=== PATIENT | male | born 1940 | race Caucasian/White ===

== ENCOUNTER 2017-01-12 11:59 | Emergency (ER) | payer OTHER ==
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
[2017-01-12 12:52] VITALS: RESP 16
[2017-01-12 13:21] LABS: INR 1.44 (0.83-1.16); PROTIME(PATIENT) 17.5 SEC (12.0-15.0)
[2017-01-12] MEDS ORDERED: LET GEL TOPICAL 1 EA SYR TP ONE ×2 (14:06→15:47)
[2017-01-12 15:41] VITALS: BP 165/90; PULSE 69; TEMP 98.1; O2SAT 96
== END 2017-01-12 15:40 | disposition home or self-care (01) ==
LOC: EDUNIT#
DX: S13.4XXA Sprain of ligaments of cervical spine, initial encounter (principal); S51.812A Laceration without foreign body of left forearm, initial encounter; S81.012A Laceration without foreign body, left knee, initial encounter; S81.822A Laceration with foreign body, left lower leg, initial encounter; Z79.01 Long term (current) use of anticoagulants; Z85.528 Personal history of other malignant neoplasm of kidney; V49.49XA Driver injured in collision with other motor vehicles in traffic accident, initial encounter; Y92.410 Unspecified street and highway as the place of occurrence of the external cause; Y99.8 Other external cause status; Y93.89 Activity, other specified
CPT/HCPCS: G0390